=== PATIENT | female | born 1965 | race Caucasian/White ===

== ENCOUNTER 2017-08-08 15:07 | Emergency (ER) | payer BC, OTHER ==
[2017-08-08 15:10] VITALS: BP 126/77; PULSE 100; TEMP 98.3; BMI 21.2
--- NOTE | 2017-08-08 15:40 | PDOC ---
History of Present Illness - General Chief Complaint: Respiratory Stated Complaint: SOB History Source: Patient Exam Limitations: No Limitations - History of Present Illness Initial Comments: 08/08/17 16:00 This 52-year-old female who is a positive smoker is complaining of a cough and feels that it is tight in her chest for the last 4 days. Denies any fever. Denies any runny nose but states she had some pharyngitis several days ago. She denies any use of antibiotics or any kind of medications on a daily basis. Past History - Travel Traveled outside of the country in the last 30 days: No - Past Medical History Allergies/Adverse Reactions: Allergies Allergy/AdvReac Type Severity Reaction Status Date / Time No Known Allergies Allergy Verified 08/08/17 15:11 Home Medications: Ambulatory Orders Metoprolol Succinate [Toprol XL] 25 mg PO DAILY #30 tab.sr.24h 12/27/11 Sulfamethoxazole/Trimethoprim [Bactrim *Ds*] 1 each PO BID #14 tablet 07/29/13 Methylprednisolone [Medrol Dose Diomedes] 4 mg PO ASDIR #21 tablet 08/08/17 Cardiac Disorders: Yes (Symptomatic PVC (Premature Ventricular Contraction)) HTN: Yes Kidney Stones: Yes - Surgical History Appendectomy: Yes - Suicide/Smoking/Psychosocial Hx Smoking Status: Yes Smoking History: Current every day smoker Have you smoked in the past 12 months: Yes Number of Cigarettes Smoked Daily: 10 Information on smoking cessation initiated: No Hx Alcohol Use: No Drug/Substance Use Hx: No Substance Use Type: Alcohol Hx Substance Use Treatment: No Review of Systems - Review of Systems Able to Perform ROS?: Yes Comments:: 08/08/17 16:01 General statement: Hematology: neg history of bleeding/blood thinners Skin: Neg for lesions, rash, bruising. HEENT: Neg symptoms Respiratory: Neg SOB or difficulty in breathing Cardiac: Neg chest pain GI: Neg pain, n/v : Neg problems on voiding MS: Neg for joint pain/stiffness, no edema Neuro: Neg for LOC, weakness, Endocrine: Neg for excess thirst/hunger, cold/heat intolerance, excess sweating Allergies: Neg for allergies *Physical Exam - Vital Signs Last Vital Signs Temp Pulse Resp BP Pulse Ox 98.3 F 100 H 16 126/77 98 08/08/17 15:08 08/08/17 15:08 08/08/17 15:08 08/08/17 15:08 08/08/17 15:08 - Physical Exam Comments: 08/08/17 16:01 General Appearance: This well appearing V/S: hemodynamically stable, afebrile Skin: WNL of pt's skin color, no signs of pallor, mottling, cyanosis Head:symmetrical Eyes: EOM's intact, PERRLA Ears: denies pain Nose: patent Throat: lips, teeth, gums, tongue, buccal mucos pink and moist Lungs: Chest symmetry equal. Cap refill <3 seconds. Lung sounds clear Cardiac: PMI at R 4MCL space, pos S1 and S2, regular rate. Abdomen: Soft, round, nontender : Not observed Muscularskeletal: Gait steady, ambulated in to ER, no edema +PMS Neuro: AAOx3, cognitively intact, speech clear and appropriate. Medical Decision Making - Medical Decision Making 08/08/17 16:02 This was initially seen and examined. Patient has some mild bronchitis on the right side chest wall mid lobe to upper lobe. Mostly on coughing. Plan Chest x-ray rule out pneumonia 08/08/17 16:19 Negative for pneumonia. Bronchial congestion noted. Will order a Medrol Dosepak. *DC/Admit/Observation/Transfer Diagnosis at time of Disposition: Bronchitis Upper respiratory infection Qualifiers: URI type: unspecified URI Qualified Code(s): J06.9 - Acute upper respiratory infection, unspecified - Discharge Dispostion Disposition: HOME Condition at time of disposition: Good Admit: No - Referrals Referrals: Adriano Quigley MD [Primary Care Provider] - - Patient Instructions Additional Instructions: Discharge instructions 1. Please follow up with your primary physician within the next few days and explain that you have been seen here in the Emergency Room. 2. If you experience any worsening of symptoms, please return to the ER 3. Rest, daily vitamins, symptom relief [id number] medications, stop smoking, 4. Drink plenty of water
== END 2017-08-08 16:33 | disposition home or self-care (01) ==
LOC: JERFT 15:07
DX: J40 Bronchitis, not specified as acute or chronic (principal); I49.3 Ventricular premature depolarization; I10 Essential (primary) hypertension; Z87.442 Personal history of urinary calculi; F17.210 Nicotine dependence, cigarettes, uncomplicated
CPT/HCPCS: 71020-TC; 99281-25

== ENCOUNTER 2017-12-09 21:23 | Emergency (ER) | payer BC, OTHER ==
[2017-12-09 21:38] VITALS: BP 132/75; PULSE 91; TEMP 98.1; BMI 20.5
[2017-12-09 21:54] LABS: URINE APPEARANCE CLEAR; URINE BILIRUBIN NEGATIVE (NEGATIVE); URINE BLOOD NEGATIVE (NEGATIVE); URINE COLOR COLORLESS; URINE GLUCOSE (UA) NEGATIVE (NEGATIVE); URINE KETONE NEGATIVE (NEGATIVE); URINE LEUK ESTERASE TRACE (NEGATIVE); URINE NITRITE NEGATIVE (NEGATIVE); URINE PROTEIN NEGATIVE (NEGATIVE); URINE UROBILINOGEN NEGATIVE mg/dL (0.2-1.0)
[2017-12-09 21:58] LABS: EPI CELLS RARE /HPF (FEW)
[2017-12-09 22:07] LABS: HCG,QUALITATIVE URINE NEGATIVE
--- NOTE | 2017-12-09 22:20 | PDOC ---
History of Present Illness - General Chief Complaint: Pain, Acute Stated Complaint: BACK PAIN Time Seen by Provider: 12/09/17 22:19 History Source: Patient - History of Present Illness Travel History: No Initial Comments: 12/10/17 00:15 52-year-old female with a history of renal colic presents to the emergency department complaining of 7/10 intermittent reid left-sided flank discomfort radiating to the left pelvic region without nausea/vomiting, fever/ chills, chest pain, shortness of breath, urinary symptoms: Frequency/urgency/ hesitancy, hematuria. The pain is exacerbated when laying left lateral recumbent and alleviated and standing oriented position. Past History - Past Medical History Allergies/Adverse Reactions: Allergies Allergy/AdvReac Type Severity Reaction Status Date / Time No Known Allergies Allergy Verified 12/09/17 21:34 Home Medications: Ambulatory Orders NK [No Known Home Medication] 12/09/17 Cardiac Disorders: Yes (Symptomatic PVC (Premature Ventricular Contraction)) COPD: No HTN: Yes Kidney Stones: Yes - Surgical History Appendectomy: Yes - Suicide/Smoking/Psychosocial Hx Smoking Status: Yes Smoking History: Current every day smoker Have you smoked in the past 12 months: Yes Number of Cigarettes Smoked Daily: 10 Information on smoking cessation initiated: No Hx Alcohol Use: No Drug/Substance Use Hx: No Substance Use Type: Alcohol Hx Substance Use Treatment: No *Physical Exam - Vital Signs Last Vital Signs Temp Pulse Resp BP Pulse Ox 98.1 F 91 H 20 132/75 99 12/09/17 21:37 12/09/17 21:37 12/09/17 21:37 12/09/17 21:37 12/09/17 21:37 ED Treatment Course - ADDITIONAL ORDERS Additional order review: Laboratory Results 12/09/17 21:39 Urine Color Colorless Urine Appearance Clear Urine pH 7.0 D Ur Specific [place] 1.002 Urine Protein Negative Urine Glucose (UA) Negative Urine Ketones Negative Urine Blood Negative Urine Nitrite Negative Urine Bilirubin Negative Urine Urobilinogen Negative Ur Leukocyte Esterase Trace Urine WBC (Auto) 3 Urine RBC (Auto) <1 Ur Epithelial Cells Rare Urine HCG, Qual Negative - RADIOLOGY Radiograph Interpretation: 12/10/17 00:28 CAT scan abdomen and pelvis without IV or by mouth contrast: There is no obstructive ureterolithiasis appreciated. There are multiple punctate nonobstructive renal calculi bilaterally. Additionally there is a 2.4 cm cyst involving the left kidney. The sigmoid colon is collapsed. There is appearance of mild sigmoid wall thickening, possibly due to incomplete distention of the sigmoid colon. Mild colitis is not excluded. Progress Note - Progress Note Progress Note: On initial exam, reexamination and on discharge, patient appears comfortable, sitting in bed speaking to her spouse. Laughing and joking. Patient ambulating in the emergency department. *DC/Admit/Observation/Transfer Diagnosis at time of Disposition: Left flank pain, Colitis - Discharge Dispostion Disposition: HOME Condition at time of disposition: Stable Admit: No - Referrals Referrals: Jose Nielson MD [Staff Physician] - Kevin Bustillos MD [Staff Physician] - - Patient Instructions Printed Discharge Instructions: Kidney Stones -- Adult, DI for Colitis Additional Instructions: Please follow-up with the gastroenterology manager/Dr. Bustillos [phone] You also need to follow-up with the urologist: Dr. Coffey [phone] Increase fluids Follow with your primary care physician along with the above-stated specialist within 48 hours Return back to the emergency department for severe/persistent or worsening symptoms - Post Discharge Activity
== END 2017-12-10 00:54 | disposition home or self-care (01) ==
LOC: JER 21:23
DX: K52.9 Noninfective gastroenteritis and colitis, unspecified (principal); Z87.442 Personal history of urinary calculi; I10 Essential (primary) hypertension
CPT/HCPCS: 74176; 81003; 81015; 84703; 87086; 99282-25

== ENCOUNTER 2023-08-06 16:51 | Inpatient (IN) | payer BC, OTHER ==
[2023-08-06] MEDS ORDERED: SODIUM CHLORIDE 1,000 ML IV STA (17:31)
[2023-08-06 17:34] LABS: EPI CELLS >36 /uL (0-25.1); HYALINE CASTS 1 /uL (0-3.1); URINE APPEARANCE CLOUDY; URINE BACTERIA 2993 /uL (0-1359); URINE BILIRUBIN NEGATIVE (NEGATIVE); URINE COLOR YELLOW; URINE GLUCOSE (UA) NEGATIVE (NEGATIVE); URINE KETONE NEGATIVE (NEGATIVE); URINE LEUK ESTERASE 1+ (NEGATIVE); URINE NITRITE NEGATIVE (NEGATIVE); URINE PROTEIN NEGATIVE (NEGATIVE); URINE RBC 32 /uL (0-23.9); URINE UROBILINOGEN 0.2 mg/dL (0.2-1.0); URINE WBC 138 /uL (0-25.8)
[2023-08-06] MEDS ORDERED: ONDANSETRON 4 MG/2 ML VIAL IVPUSH ONE (17:40)
[2023-08-06] MEDS ORDERED: ACETAMINOPHEN 1000 MG/100 ML BAG IVPB ONE (17:40)
[2023-08-06] MEDS ORDERED: ONDANSETRON 4 MG/2 ML VIAL ONE (17:55)
[2023-08-06] MEDS ORDERED: ACETAMINOPHEN INJECTION 100 ML IVPB ONE (17:55)
[2023-08-06 17:58] LABS: BASO % 0.5 % (0-2.0); EOS % 0.8 % (0-4.5); HEMATOCRIT 40.8 % (32.4-45.2); LYMPH % 18.6 % (8-40); MCH 29.1 pg (25.7-33.7); MCHC 34.3 g/dl (32.0-36.0); MEAN CELL VOLUME 84.8 fl (80-96); MEAN PLT VOLUME 8.5 fl (7.5-11.1); MONO % 8.9 % (3.8-10.2); NEUT % 71.2 % (42.8-82.8); PLATELET COUNT 286 10^3/uL (134-434); RDW 15.1 % (11.6-15.6); WHITE BLOOD COUNT 12.4 K/mm3 (4.0-10.0)
[2023-08-06 18:04] LABS: INR 1.1 (0.83-1.09); PROTHROMBIN TIME (PATIENT) 12.7 SEC (9.7-13.0)
[2023-08-06 18:07] LABS: ACTIVATED PTT 28.7 SECONDS (25.2-36.5)
[2023-08-06 18:34] LABS: POTASSIUM 3.7 mmol/L (3.5-5.1)
[2023-08-06 18:36] LABS: ALBUMIN 4.3 g/dl (3.4-5.0); BLOOD UREA NITROGEN 20.8 mg/dL (7-18); CALCIUM 9.9 mg/dL (8.5-10.1)
[2023-08-06 18:39] LABS: CREATININE 1.2 mg/dL (0.55-1.3)
[2023-08-06 18:41] LABS: BILIRUBIN,TOTAL 0.5 mg/dL (0.2-1); TOT PROT 7.9 g/dl (6.4-8.2)
[2023-08-06] MEDS ORDERED: KETOROLAC TROMETHAMINE 15 MG/ML VIAL IVPUSH ONE (20:38)
[2023-08-06] MEDS ORDERED: KETOROLAC TROMETHAMINE 15 MG/ML VIAL ONE (20:38)
[2023-08-06] MEDS ORDERED: PIPERACILLIN/TAZOB 4.5 GM 4.5 GM in DEXTROSE 5%-WATER 100 ML IVPB ONE (20:54)
[2023-08-06] MEDS ORDERED: PIPERACILLIN/TAZOB 4.5 GM 4.5 GM/100 ML BAG IVPB ONE (21:33)
[2023-08-07] MEDS ORDERED: DOCUSATE SODIUM 100 MG CAPSULE (FP) PO PRN (02:03)
[2023-08-07] MEDS ORDERED: KETOROLAC TROMETHAMINE 15 MG/ML VIAL IVPUSH PRN (02:03)
[2023-08-07 02:24] VITALS: BMI 26.6
[2023-08-07] MEDS: DEXTROSE 5%-NORMAL SALINE 1,000 ML IV SCH ×2 (03:09→18:13)
[2023-08-07] MEDS: PIPERACILLIN/TAZOB 3.375 GM 3.375 GM in DEXTROSE 5%-WATER - 50 ML IVPB SCH ×3 (03:10→10:38)
[2023-08-07] MEDS ORDERED: FLU VACCINE (FLULAVAL) PF 60 MCG/0.5 ML SYRINGE 2023-2024 IM ONE (04:01)
[2023-08-07] MEDS ORDERED: ONDANSETRON 4 MG/2 ML VIAL IVPUSH PRN (07:49)
[2023-08-07 10:16] LABS: BASO % 0.2 % (0-2.0); EOS % 2.3 % (0-4.5); HEMATOCRIT 37.5 % (32.4-45.2); LYMPH % 28.5 % (8-40); MCH 28.3 pg (25.7-33.7); MEAN CELL VOLUME 88.5 fl (80-96); MEAN PLT VOLUME 8.1 fl (7.5-11.1); MONO % 8.4 % (3.8-10.2); NEUT % 60.6 % (42.8-82.8); PLATELET COUNT 234 10^3/uL (134-434); RBC 4.24 M/mm3 (3.60-5.2); RDW 15.1 % (11.6-15.6); WHITE BLOOD COUNT 7.9 K/mm3 (4.0-10.0)
[2023-08-07] MEDS ORDERED: ACETAMINOPHEN 1000 MG/100 ML BAG IVPB PRN (10:31)
[2023-08-07] MEDS: PANTOPRAZOLE 20 MG TABLET PO SCH (10:39)
[2023-08-07 10:40] LABS: POTASSIUM 3.8 mmol/L (3.5-5.1)
[2023-08-07 10:47] LABS: BLOOD UREA NITROGEN 18.5 mg/dL (7-18); MAGNESIUM 1.8 mg/dL (1.8-2.4)
[2023-08-07 10:52] LABS: CALCIUM 8.3 mg/dL (8.5-10.1)
[2023-08-07] MEDS: HEPARIN NA (PORCINE) 5,000 UNITS/ML 1ML VIAL SQ SCH ×2 (11:33→21:08)
[2023-08-07] MEDS: CEFTRIAXONE 2 GM in DEXTROSE 5%-WATER - 50 ML IVPB SCH (13:50)
[2023-08-07] MEDS ORDERED: TAMSULOSIN HCL 0.4 MG CAP PO ONE (14:00)
[2023-08-07] MEDS ORDERED: HEPARIN NA (PORCINE) 5,000 UNITS/ML 1ML VIAL SQ SCH (14:00)
[2023-08-08] MEDS ORDERED: PIPERACILLIN/TAZOB 3.375 GM 3.375 GM in DEXTROSE 5%-WATER - 50 ML IVPB SCH (03:00)
[2023-08-08] MEDS: DEXTROSE 5%-NORMAL SALINE 1,000 ML IV SCH ×2 (06:26→10:30)
[2023-08-08] MEDS: TAMSULOSIN HCL 0.4 MG CAP PO SCH ×2 (10:27→10:40)
[2023-08-08] MEDS: HEPARIN NA (PORCINE) 5,000 UNITS/ML 1ML VIAL SQ SCH ×3 (10:28→22:04)
[2023-08-08] MEDS: PANTOPRAZOLE 20 MG TABLET PO SCH ×2 (10:28→10:41)
[2023-08-08] MEDS: CEFTRIAXONE 2 GM in DEXTROSE 5%-WATER - 50 ML IVPB SCH (10:29)
[2023-08-08] MEDS ORDERED: ACETAMINOPHEN 325 MG TABLET (FP) PO ONE (14:45)
[2023-08-08] MEDS ORDERED: oxyCODONE HCL 5 MG TABLET PO PRN ×2 (16:17→17:43)
[2023-08-08] MEDS ORDERED: LACTATED RINGERS SOLUTION 1,000 ML IV SCH (16:30)
[2023-08-08] MEDS ORDERED: MIDAZOLAM HCL 2 MG/2 ML SINGLE DOSE VIAL ONE (16:48)
[2023-08-08] MEDS ORDERED: PROPOFOL 20 ML ONE (16:48)
[2023-08-08] MEDS ORDERED: DEXAMETHASONE SOD PHOSPHATE 4 MG/1 ML VIAL ONE (16:59)
[2023-08-08] MEDS ORDERED: KETOROLAC TROMETHAMINE 30 MG/1 ML VIAL ONE (16:59)
[2023-08-08] MEDS ORDERED: ONDANSETRON 4 MG/2 ML VIAL ONE (16:59)
[2023-08-08] MEDS ORDERED: GENTAMICIN SO4 80 MG/2 ML VIAL IVPB ONE (17:10)
[2023-08-08] MEDS ORDERED: FENTANYL CITRATE/PF 50 MCG/ML VIAL ONE (17:34)
[2023-08-08] MEDS ORDERED: ONDANSETRON 4 MG/2 ML VIAL IVPUSH PRN (17:43)
[2023-08-08] MEDS ORDERED: DEXTROSE 5%-NORMAL SALINE 1,000 ML IV SCH (17:43)
[2023-08-08] MEDS ORDERED: DOCUSATE SODIUM 100 MG CAPSULE (FP) PO PRN (17:43)
[2023-08-08] MEDS: ACETAMINOPHEN 1000 MG/100 ML BAG IVPB PRN (22:03)
[2023-08-09] MEDS: ACETAMINOPHEN 1000 MG/100 ML BAG IVPB PRN (04:08)
[2023-08-09] MEDS: HEPARIN NA (PORCINE) 5,000 UNITS/ML 1ML VIAL SQ SCH (09:45)
[2023-08-09] MEDS ORDERED: CEFTRIAXONE 2 GM in DEXTROSE 5%-WATER - 50 ML IVPB SCH (10:00)
[2023-08-09] MEDS ORDERED: PANTOPRAZOLE 20 MG TABLET PO SCH (10:00)
[2023-08-09] MEDS ORDERED: ACETAMINOPHEN 500 MG TABLET (FP) PO ONE (11:05)
[2023-08-09 11:41] VITALS: BP 122/68; PULSE 71; RESP 20; TEMP 97.8
== END 2023-08-09 13:45 | disposition home or self-care (01) | DRG 661 ==
LOC: JER 16:51 → JERBED 20:44 → J8W 08-07 00:40
PROVIDERS: ADMIT Internal Medicine; ATTEND Internal Medicine
PROC: BT1DZZZ Fluoroscopy of Right Kidney, Ureter and Bladder (ICD-10-PCS; principal; 2023-08-08 15:30)
PROC: 0T768DZ Dilation of Right Ureter with Intraluminal Device, Via Natural or Artificial Opening Endoscopic (ICD-10-PCS; 2023-08-08 15:30)
PROC: 0TC68ZZ Extirpation of Matter from Right Ureter, Via Natural or Artificial Opening Endoscopic (ICD-10-PCS; 2023-08-08 15:30)
DX: N13.2 Hydronephrosis with renal and ureteral calculous obstruction (principal); N17.9 Acute kidney failure, unspecified; L27.1 Localized skin eruption due to drugs and medicaments taken internally; T39.8X5A Adverse effect of other nonopioid analgesics and antipyretics, not elsewhere classified, initial encounter; K80.20 Calculus of gallbladder without cholecystitis without obstruction; F17.210 Nicotine dependence, cigarettes, uncomplicated
CPT/HCPCS: 36415; 74176-TC; 76000-TC-FY; 76705-TC; 80048; 80053; 81003; 82360; 83690; 83735; 85025; 85610; 85730; 86850; 86900; 86901; 87086; 88300-TC; 93005; 93010; 94760; 99285-25; C1758; C2617; J1644

== ENCOUNTER 2023-09-19 04:10 | Day surgery (SDC) | payer BC, OTHER ==
[2023-09-12 14:42] VITALS: BMI 26.6
[2023-09-19] MEDS ORDERED: MIDAZOLAM HCL 2 MG/2 ML SINGLE DOSE VIAL ONE (13:32)
[2023-09-19] MEDS ORDERED: FENTANYL CITRATE/PF 50 MCG/ML VIAL ONE ×2 (13:32→13:48)
[2023-09-19 14:20] VITALS: RESP 16
[2023-09-19 14:54] VITALS: BP 131/76; PULSE 80; TEMP 97.7
== END 2023-09-19 14:55 | disposition home or self-care (01) ==
LOC: JASU-SURG 04:10
PROVIDERS: ATTEND Urology
PROC: 0TF3XZZ Fragmentation in Right Kidney Pelvis, External Approach (ICD-10-PCS; principal; 2023-09-19 12:30)
DX: N20.0 Calculus of kidney (principal)